=== PATIENT | male | born 1950 | race African-American/Black ===

== ENCOUNTER 2018-12-31 09:55 | Inpatient (IN) | payer OTHER ==
[2018-12-31] VITALS (47 sets, daily range): BP systolic 81–166; BP diastolic 38–123
[~2018-12-31] VITALS: Ht 177.8 cm; Wt 78.5 kg
[2018-12-31] MEDS ORDERED: OMEP10CA5 PO (10:05)
[2018-12-31] MEDS ORDERED: METO25TA6 PO (10:05)
[2018-12-31] MEDS ORDERED: PRO1 PO (10:05)
[2018-12-31] MEDS ORDERED: ALLO100T PO (10:05)
[2018-12-31] MEDS ORDERED: ISOS5TAB4 PO (10:05)
[2018-12-31] MEDS ORDERED: ASPI-1393 PO (10:05)
[2018-12-31] MEDS ORDERED: MORPHINE SULFATE 4 MG/ML CPJ (NOT FOR IM USE) IV STA (10:38)
[2018-12-31] MEDS ORDERED: SODIUM CHLORIDE 0.9% 1,000 ML IV ONE ×3 (10:38→12:30)
[2018-12-31 11:07] LABS: BASOPHILS % 0.4 % (0.0-2.0); EOSINOPHILS % 0.4 % (0.0-5.0); HEMATOCRIT. 22.6 % (42.0-52.0); HEMOGLOBIN. 7.4 g/dL (14.0-18.0); LYMPHOCYTES % 15.5 % (20.0-50.0); MEAN CORPUSCULAR HEMOGLOBIN 30.9 pg (28.0-32.0); MEAN CORPUSCULAR VOLUME 94.7 fL (80.0-94.0); MEAN PLATELET VOLUME 6.6 fl (7.4-10.4); MONOCYTES % 12.5 % (2.0-8.0); NEUTROPHILS % 71.2 % (40.0-76.0); PLATELET 896 x1000/uL (130-400); RED BLOOD CELL COUNT 2.39 mill/uL (4.7-6.1); RED CELL DISTRIBUTION WIDTH 18.5 % (11.6-14.6)
[2018-12-31 11:16] LABS: CHLORIDE 108 mEq/L (98-107)
[2018-12-31 11:18] LABS: INR 1.2; PROTHROMBIN TIME 12.7 sec (9.6-11.0)
[2018-12-31] MEDS ORDERED: VANCOMYCIN 1 G PREMIX 200 ML IV SCH (11:30)
[2018-12-31] MEDS ORDERED: PIPERACILLIN/TAZOBACTAM 3.375GM/50ML PREMIX IV ONE (11:30)
[2018-12-31] MEDS ORDERED: SUCCINYLCHOLINE CHLORIDE 200MG/10ML IV ONE ×2 (12:19→12:30)
[2018-12-31] MEDS ORDERED: ETOMIDATE 2MG/ML 10ML VIAL IV ONE ×2 (12:19→12:30)
[2018-12-31] MEDS ORDERED: ATROPINE SULFATE 1MG/10ML SYR ONE ×2 (12:19→13:58)
[2018-12-31] MEDS ORDERED: MIDAZOLAM HCL 50 MG in DEXTROSE 5% WATER 40 ML IV ONE ×2 (12:30→13:00)
[2018-12-31] MEDS ORDERED: MIDAZOLAM HCL 2 MG/2 ML VIAL IV ONE (12:45)
[2018-12-31 13:18] LABS: BG BASE EXCESS -9.6 mmol/L (-2.0-2.0); BG CARBOXYHEMOGLOBIN 0.5 % (0.5-1.5); BG DEOXYHEMOGLOBIN 0.2 % (0.0-5.0); BG FRACTION INSPIRED OXYGEN 100; BG HCO3 ACT 18.2 mmol/L (22.0-26.0); BG METHEMOGLOBIN 0.3 % (0.0-1.5); BG OXYGEN SATURATION 99.8 % (92.0-98.5); BG PCO2 51.2 mmHg (35.0-45.0); BG PH 7.168 (7.350-7.450); BG PO2 278.7 mmHg (75.0-100.0); BG SAMPLE SITE RIGHT RADIAL; BG TIDAL VOLUME(mL) 500 mL; BG TOTAL HEMOGLOBIN 6.2 g/dL (12.0-18.0); BG VENT MODE VENT - A/C; BG VENT RATE 14 set
[2018-12-31] MEDS ORDERED: NOREPINEPHRINE 4MG/250ML PMX 250 ML IV ONE ×2 (13:18→13:30)
[2018-12-31] MEDS ORDERED: LIDOCAINE HCL 1% 20ML VIAL (Pyxis) INJ ONE (13:22)
[2018-12-31] MEDS ORDERED: HEPARIN 5000 UNITS/ML VIAL IV ONE (13:30)
[2018-12-31 13:42] LABS: CLARITY URINE TURBID (CLEAR); COLOR URINE YELLOW (YELLOW); SPECIFIC GRAVITY URINE 1.021 (1.005-1.030)
[2018-12-31] MEDS ORDERED: ALTEPLASE 50MG/VIAL IV NR ×2 (13:45→14:15)
[2018-12-31] MEDS ORDERED: EPINEPHRINE 0.1MG/ML (1:10,000) 10ML SYR ONE ×3 (13:47→14:18)
[2018-12-31] MEDS ORDERED: AMIODARONE HCL 50MG/ML 3ML VIAL IV ONE (13:58)
[2018-12-31] MEDS ORDERED: LIDOCAINE HCL 2% 5ML SYRINGE IV ONE (13:58)
[2018-12-31] MEDS ORDERED: SODIUM BICARBONATE 8.4% MEQ/ML 50ML VIAL IV ONE (13:58)
[2018-12-31] MEDS ORDERED: DOPAMINE 400MG/250ML PREMIX 250 ML IV ONE ×2 (14:11→14:15)
[2018-12-31] MEDS ORDERED: ONDANSETRON HCL 4MG/2ML INJ IV PRN (14:15)
[2018-12-31] MEDS ORDERED: ALTEPLASE 100MG/VIAL IV ONE (14:15)
[2018-12-31] MEDS ORDERED: IPRATROPIUM/ALBUTEROL 0.5-3(2.5)MG/3ML NEB HHN PRN (14:15)
[2018-12-31] MEDS ORDERED: DEXT 5%/0.45% NACL 1000ML 1,000 ML IV SCH (14:15)
[2018-12-31] MEDS ORDERED: NOREPINEPHRINE 4MG/250ML PMX 250 ML IV PRN (14:15)
[2018-12-31] MEDS ORDERED: ACETAMINOPHEN 325MG TABLET PO PRN (14:15)
[2018-12-31] MEDS ORDERED: SODIUM BICARBONATE 8.4% 1 MEQ/ML 50ML SYR IV ONE (14:19)
[2018-12-31] MEDS ORDERED: PHENYLEPHRINE 40 MG in DEXT 5% WATER 246 ML IV PRN ×2 (15:00→15:15)
[2018-12-31] MEDS ORDERED: NOREPINEPHRINE 32 MG in DEXT 5% WATER 468 ML IV PRN (15:00)
[2018-12-31] MEDS ORDERED: DOPAMINE 400MG/250ML PREMIX 250 ML IV PRN (15:00)
[2018-12-31] MEDS ORDERED: PROPOFOL 10MG/ML 100ML 100 ML IV PRN (16:00)
[2018-12-31 16:12] LABS: TOTAL IRON BINDING CAPACITY 143 ug/dL (250-450)
[2018-12-31] MEDS: NOREPINEPHRINE 32 MG in DEXT 5% WATER 468 ML IV PRN (16:49)
[2018-12-31] MEDS: PHENYLEPHRINE 40 MG in DEXT 5% WATER 246 ML IV PRN (16:50)
[2018-12-31] MEDS ORDERED: VANCOMYCIN 500 MG PREMIX 100 ML IV SCH (17:00)
[2018-12-31 17:03] LABS: BASOPHILS % 0.3 % (0.0-2.0); EOSINOPHILS % 0.1 % (0.0-5.0); HEMATOCRIT. 21.5 % (42.0-52.0); LYMPHOCYTES % 11.9 % (20.0-50.0); MEAN CORPUSCULAR HEMOGLOBIN 31.1 pg (28.0-32.0); MEAN CORPUSCULAR VOLUME 100.1 fL (80.0-94.0); MEAN PLATELET VOLUME 6.7 fl (7.4-10.4); MONOCYTES % 2.1 % (2.0-8.0); NEUTROPHILS % 85.6 % (40.0-76.0); PLATELET 840 x1000/uL (130-400); RED BLOOD CELL COUNT 2.14 mill/uL (4.7-6.1); RED CELL DISTRIBUTION WIDTH 18.8 % (11.6-14.6)
[2018-12-31 17:14] LABS: CHLORIDE 109 mEq/L (98-107)
[2018-12-31 17:26] LABS: CREATINE KINASE MB FRACTION 37.1 ng/mL (0.5-3.6); HEMOGLOBIN. 6.7 g/dL (14.0-18.0)
[2018-12-31 17:37] LABS: PHOSPHORUS 8.2 mg/dL (2.5-4.9)
[2018-12-31 17:48] LABS: BG BASE EXCESS -11.3 mmol/L (-2.0-2.0); BG CARBOXYHEMOGLOBIN 0.2 % (0.5-1.5); BG DEOXYHEMOGLOBIN 0.5 % (0.0-5.0); BG FRACTION INSPIRED OXYGEN 100; BG HCO3 ACT 15.2 mmol/L (22.0-26.0); BG METHEMOGLOBIN 0.1 % (0.0-1.5); BG OXYGEN SATURATION 99.5 % (92.0-98.5); BG OXYHEMOGLOBIN 99.2 % (94.0-97.0); BG PCO2 37.2 mmHg (35.0-45.0); BG PO2 273.5 mmHg (75.0-100.0); BG SAMPLE SITE RIGHT BRACHIAL; BG TIDAL VOLUME(mL) 500 mL; BG TOTAL HEMOGLOBIN 6.8 g/dL (12.0-18.0); BG VENT MODE VENT - A/C; BG VENT RATE 20 set
[2018-12-31 17:49] LABS: CREATINE KINASE 6718 IU/L (39-308)
[2018-12-31] MEDS: BLOOD SUGAR DIAGNOSTIC STRIP TEST SCH ×2 (17:50→21:00)
[2018-12-31] MEDS: INSULIN LISPRO 100 UNITS/ML SUBCUT SCH ×2 (17:58→21:00)
[2018-12-31] MEDS ORDERED: SODIUM BICARBONATE 8.4% 1 MEQ/ML 50ML SYR IV NR (18:00)
[2018-12-31] MEDS: PIPERACILLIN/TAZ 3.375G PREMIX 50 ML IV SCH (18:36)
[2018-12-31] MEDS ORDERED: VASOPRESSIN 10 UNIT in SODIUM CHLORIDE 0.9% 99.5 ML IV PRN (20:00)
[2018-12-31] MEDS: IPRATROPIUM/ALBUTEROL 0.5-3(2.5)MG/3ML NEB HHN SCH (20:27)
[2018-12-31] MEDS: DEXTROSE 50% WATER 50ML SYRINGE IV PRN (21:05)
[2018-12-31] MEDS ORDERED: SODIUM BICARBONATE 150 MEQ in DEXTROSE 5% WATER 1,000 ML IV SCH (21:30)
[2019-01-01] VITALS (103 sets, daily range): BP systolic 40–151; BP diastolic 16–96
[2019-01-01] MEDS: PHENYLEPHRINE 40 MG in DEXT 5% WATER 246 ML IV PRN ×6 (00:32→17:33)
[2019-01-01] MEDS: IPRATROPIUM/ALBUTEROL 0.5-3(2.5)MG/3ML NEB HHN SCH ×2 (02:05→08:53)
[2019-01-01] MEDS: PIPERACILLIN/TAZ 3.375G PREMIX 50 ML IV SCH ×2 (02:12→05:44)
[2019-01-01 02:36] LABS: HEMATOCRIT 25.1 % (42.0-52.0); HEMOGLOBIN 8.5 g/dL (14.0-18.0)
[2019-01-01 05:29] LABS: BASOPHILS % 0.4 % (0.0-2.0); EOSINOPHILS % 1.1 % (0.0-5.0); HEMATOCRIT. 26.1 % (42.0-52.0); HEMOGLOBIN. 8.8 g/dL (14.0-18.0); LYMPHOCYTES % 20.9 % (20.0-50.0); MEAN CORPUSCULAR HEMOGLOBIN 31.2 pg (28.0-32.0); MEAN CORPUSCULAR VOLUME 93.1 fL (80.0-94.0); MEAN PLATELET VOLUME 7.1 fl (7.4-10.4); MONOCYTES % 8.6 % (2.0-8.0); PLATELET 627 x1000/uL (130-400); RED BLOOD CELL COUNT 2.81 mill/uL (4.7-6.1); RED CELL DISTRIBUTION WIDTH 17.9 % (11.6-14.6)
[2019-01-01 05:59] LABS: CREATINE KINASE MB FRACTION 24.3 ng/mL (0.5-3.6)
[2019-01-01 07:41] LABS: BG BASE EXCESS 5.2 mmol/L (-2.0-2.0); BG CARBOXYHEMOGLOBIN 0.5 % (0.5-1.5); BG DEOXYHEMOGLOBIN 1.6 % (0.0-5.0); BG HCO3 ACT 28.1 mmol/L (22.0-26.0); BG METHEMOGLOBIN 0.2 % (0.0-1.5); BG OXYGEN SATURATION 98.4 % (92.0-98.5); BG OXYHEMOGLOBIN 97.7 % (94.0-97.0); BG PCO2 34.2 mmHg (35.0-45.0); BG PH 7.533 (7.350-7.450); BG PO2 126.6 mmHg (75.0-100.0); BG SAMPLE SITE RIGHT RADIAL; BG TIDAL VOLUME(mL) 500 mL; BG TOTAL HEMOGLOBIN 7.8 g/dL (12.0-18.0); BG VENT MODE VENT - A/C; BG VENT RATE 24 set
[2019-01-01] MEDS: BLOOD SUGAR DIAGNOSTIC STRIP TEST SCH ×4 (08:17→21:33)
[2019-01-01] MEDS: INSULIN LISPRO 100 UNITS/ML SUBCUT SCH (08:17)
[2019-01-01] MEDS ORDERED: FAMOTIDINE 20MG/2ML VIAL IV SCH ×2 (09:00→17:00)
[2019-01-01] MEDS ORDERED: MAGNESIUM 2 G PREMIX 50 ML IV NR (10:30)
[2019-01-01] MEDS ORDERED: POTASSIUM CHLORIDE INJ 40 MEQ in DEXT 5% WATER 250 ML IV NR (11:00)
[2019-01-01] MEDS: PIPERACILLIN/TAZ 2.25G PREMIX 50 ML IV SCH ×2 (11:24→18:09)
[2019-01-01] MEDS: DEXT 5%/0.9% NACL 1,000 ML IV SCH ×2 (11:26→18:08)
[2019-01-01] MEDS: PANTOPRAZOLE SODIUM 40 MG/VIAL IV SCH ×2 (12:14→21:36)
[2019-01-01] MEDS: NOREPINEPHRINE 32 MG in DEXT 5% WATER 468 ML IV PRN (12:15)
[2019-01-01] MEDS: IPRATROPIUM BROMIDE (0.02%) 0.5MG/2.5ML NEB HHN SCH ×3 (12:34→19:59)
[2019-01-01 13:16] LABS: HEMATOCRIT 20.9 % (42.0-52.0)
[2019-01-01 13:52] LABS: VITAMIN B12 SERUM 1203 pg/mL (211-911)
[2019-01-01 14:39] LABS: HEPATITIS B SURFACE ANTIGEN NEGATIVE
[2019-01-01 15:09] LABS: HEPATITIS A AB IGM NEGATIVE (NEGATIVE)
[2019-01-01 16:26] LABS: METHADONE URINE SCREEN NEGATIVE (NEGATIVE); OPIATES URINE SCREEN PRESUMTIVE POSITIVE (NEGATIVE)
[2019-01-01 16:27] LABS: *AMPHETAMINES SCREEN URINE NEGATIVE (NEGATIVE); *BARBITURATES SCREEN URINE NEGATIVE (NEGATIVE); *BENZODIAZEPINES SCREEN URINE PRESUMTIVE POSITIVE (NEGATIVE); *COCAINE SCREEN URINE NEGATIVE (NEGATIVE); CANNABINOID URINE SCREEN NEGATIVE (NEGATIVE); PHENCYCLIDINE URINE SCREEN NEGATIVE (NEGATIVE)
[2019-01-01] MEDS ORDERED: VANCOMYCIN 1250MG in DEXTROSE 5% WATER 250ML IV SCH (17:00)
[2019-01-01] MEDS ORDERED: PHENYLEPHRINE 80 MG in DEXT 5% WATER 492 ML IV PRN (19:55)
[2019-01-01] MEDS ORDERED: VANCOMYCIN 500 MG PREMIX 100 ML IV SCH (21:00)
[2019-01-01] MEDS: PHENYLEPHRINE 80 MG in DEXT 5% WATER 492 ML IV PRN (21:32)
[2019-01-02] VITALS (92 sets, daily range): BP systolic 82–156; BP diastolic 37–85
[2019-01-02] MEDS: IPRATROPIUM BROMIDE (0.02%) 0.5MG/2.5ML NEB HHN SCH ×6 (00:12→20:22)
[2019-01-02] MEDS: PIPERACILLIN/TAZ 2.25G PREMIX 50 ML IV SCH ×4 (01:11→18:09)
[2019-01-02] MEDS: DEXT 5%/0.9% NACL 1,000 ML IV SCH ×2 (01:11→01:15)
[2019-01-02] MEDS: PHENYLEPHRINE 80 MG in DEXT 5% WATER 492 ML IV PRN ×2 (05:56→12:45)
[2019-01-02 06:09] LABS: BASOPHILS % 0.3 % (0.0-2.0); EOSINOPHILS % 1.3 % (0.0-5.0); HEMATOCRIT. 32.6 % (42.0-52.0); HEMOGLOBIN. 11.1 g/dL (14.0-18.0); LYMPHOCYTES % 9.2 % (20.0-50.0); MEAN CORPUSCULAR HEMOGLOBIN 31.5 pg (28.0-32.0); MEAN CORPUSCULAR VOLUME 92.9 fL (80.0-94.0); MEAN PLATELET VOLUME 7.1 fl (7.4-10.4); MONOCYTES % 6.5 % (2.0-8.0); NEUTROPHILS % 82.7 % (40.0-76.0); PLATELET 394 x1000/uL (130-400); RED CELL DISTRIBUTION WIDTH 16.2 % (11.6-14.6)
[2019-01-02 07:17] LABS: BG BASE EXCESS 0.3 mmol/L (-2.0-2.0); BG CARBOXYHEMOGLOBIN 0.7 % (0.5-1.5); BG HCO3 ACT 23.9 mmol/L (22.0-26.0); BG METHEMOGLOBIN 0.2 % (0.0-1.5); BG OXYGEN SATURATION 93.9 % (92.0-98.5); BG OXYHEMOGLOBIN 93.1 % (94.0-97.0); BG PCO2 35.4 mmHg (35.0-45.0); BG PH 7.448 (7.350-7.450); BG PO2 68.9 mmHg (75.0-100.0); BG SAMPLE SITE RIGHT BRACHIAL; BG TIDAL VOLUME(mL) 500 mL; BG TOTAL HEMOGLOBIN 11.8 g/dL (12.0-18.0); BG VENT MODE VENT - A/C; BG VENT RATE 20 set
[2019-01-02] MEDS: PANTOPRAZOLE SODIUM 40 MG/VIAL IV SCH ×2 (09:30→21:25)
[2019-01-02] MEDS: BLOOD SUGAR DIAGNOSTIC STRIP TEST SCH ×2 (12:00→18:00)
[2019-01-02 12:46] LABS: HEMATOCRIT 30.7 % (42.0-52.0); HEMOGLOBIN 10.5 g/dL (14.0-18.0)
[2019-01-02] MEDS ORDERED: FUROSEMIDE 40MG/4ML VIAL IVP SCH (14:00)
[2019-01-02] MEDS: DEXTROSE 50% WATER 50ML SYRINGE IV PRN (17:46)
[2019-01-02 18:50] LABS: HEMATOCRIT 28.6 % (42.0-52.0); HEMOGLOBIN 9.9 g/dL (14.0-18.0)
[2019-01-03] VITALS (100 sets, daily range): BP systolic 69–125; BP diastolic 41–93
[2019-01-03] MEDS: BLOOD SUGAR DIAGNOSTIC STRIP TEST SCH ×4 (00:17→17:40)
[2019-01-03] MEDS: IPRATROPIUM BROMIDE (0.02%) 0.5MG/2.5ML NEB HHN SCH ×4 (00:29→11:50)
[2019-01-03] MEDS: DEXT 5%/0.9% NACL 1,000 ML IV SCH ×2 (00:29→21:45)
[2019-01-03] MEDS: PIPERACILLIN/TAZ 2.25G PREMIX 50 ML IV SCH ×4 (00:30→21:45)
[2019-01-03] MEDS: PHENYLEPHRINE 80 MG in DEXT 5% WATER 492 ML IV PRN (00:30)
[2019-01-03 00:45] LABS: HEMATOCRIT 30.8 % (42.0-52.0); HEMOGLOBIN 10.8 g/dL (14.0-18.0)
[2019-01-03] MEDS: PANTOPRAZOLE SODIUM 40 MG/VIAL IV SCH ×2 (08:42→21:46)
[2019-01-03 08:48] LABS: BG BASE EXCESS 0.4 mmol/L (-2.0-2.0); BG CARBOXYHEMOGLOBIN 0.1 % (0.5-1.5); BG DEOXYHEMOGLOBIN 2.8 % (0.0-5.0); BG FRACTION INSPIRED OXYGEN 40; BG HCO3 ACT 24.5 mmol/L (22.0-26.0); BG OXYGEN SATURATION 97.2 % (92.0-98.5); BG OXYHEMOGLOBIN 97.1 % (94.0-97.0); BG PCO2 37.6 mmHg (35.0-45.0); BG PH 7.432 (7.350-7.450); BG SAMPLE SITE RIGHT RADIAL; BG TIDAL VOLUME(mL) 500 mL; BG TOTAL HEMOGLOBIN 10.6 g/dL (12.0-18.0); BG VENT MODE VENT - A/C; BG VENT RATE 20 set
[2019-01-03 09:00] LABS: BASOPHILS % 0.5 % (0.0-2.0); EOSINOPHILS % 2.9 % (0.0-5.0); HEMATOCRIT. 39.4 % (42.0-52.0); HEMOGLOBIN. 13.3 g/dL (14.0-18.0); LYMPHOCYTES % 12.5 % (20.0-50.0); MEAN CORPUSCULAR HEMOGLOBIN 31.4 pg (28.0-32.0); MEAN CORPUSCULAR VOLUME 93.4 fL (80.0-94.0); MEAN PLATELET VOLUME 7.7 fl (7.4-10.4); MONOCYTES % 5.5 % (2.0-8.0); NEUTROPHILS % 78.6 % (40.0-76.0); PLATELET 197 x1000/uL (130-400); RED BLOOD CELL COUNT 4.22 mill/uL (4.7-6.1); RED CELL DISTRIBUTION WIDTH 16.6 % (11.6-14.6)
[2019-01-03] MEDS ORDERED: FUROSEMIDE 40MG/4ML VIAL IVP NR (14:15)
[2019-01-03] MEDS: IPRATROPIUM/ALBUTEROL 0.5-3(2.5)MG/3ML NEB HHN SCH ×2 (15:33→20:32)
[2019-01-03] MEDS: ACETYLCYSTEINE 100MG/ML 10% VIAL 4ML INH SCH (15:34)
[2019-01-03] MEDS ORDERED: VANCOMYCIN 500 MG PREMIX 100 ML IV NR (18:00)
[2019-01-03 18:55] LABS: LDL CHOLESTEROL 15 mg/dL (5-100)
[2019-01-03 18:58] LABS: HDL CHOLESTEROL 8 mg/dL (40-59)
[2019-01-03] MEDS: NEOMY SULF/BACITRAC ZN/POLY OINT 28GM TOP SCH (21:45)
[2019-01-04] VITALS (99 sets, daily range): BP systolic 87–151; BP diastolic 50–98
[2019-01-04] MEDS: ACETYLCYSTEINE 100MG/ML 10% VIAL 4ML INH SCH ×3 (00:04→15:35)
[2019-01-04] MEDS: IPRATROPIUM/ALBUTEROL 0.5-3(2.5)MG/3ML NEB HHN SCH ×6 (00:04→20:29)
[2019-01-04] MEDS: BLOOD SUGAR DIAGNOSTIC STRIP TEST SCH ×4 (00:35→17:37)
[2019-01-04 05:39] LABS: BASOPHILS % 0.5 % (0.0-2.0); EOSINOPHILS % 2.7 % (0.0-5.0); HEMATOCRIT. 31.1 % (42.0-52.0); HEMOGLOBIN. 10.4 g/dL (14.0-18.0); LYMPHOCYTES % 15.5 % (20.0-50.0); MEAN CORPUSCULAR HEMOGLOBIN 30.9 pg (28.0-32.0); MEAN CORPUSCULAR VOLUME 92.1 fL (80.0-94.0); MEAN PLATELET VOLUME 7.9 fl (7.4-10.4); MONOCYTES % 6.9 % (2.0-8.0); NEUTROPHILS % 74.4 % (40.0-76.0); PLATELET 218 x1000/uL (130-400); RED BLOOD CELL COUNT 3.38 mill/uL (4.7-6.1); RED CELL DISTRIBUTION WIDTH 16.4 % (11.6-14.6)
[2019-01-04] MEDS: PIPERACILLIN/TAZ 2.25G PREMIX 50 ML IV SCH ×3 (06:04→21:08)
[2019-01-04 07:36] LABS: BG BASE EXCESS -0.7 mmol/L (-2.0-2.0); BG CARBOXYHEMOGLOBIN 0.1 % (0.5-1.5); BG DEOXYHEMOGLOBIN 1.6 % (0.0-5.0); BG HCO3 ACT 23.6 mmol/L (22.0-26.0); BG METHEMOGLOBIN 0.2 % (0.0-1.5); BG OXYGEN SATURATION 98.4 % (92.0-98.5); BG OXYHEMOGLOBIN 98.1 % (94.0-97.0); BG PCO2 37.5 mmHg (35.0-45.0); BG PH 7.416 (7.350-7.450); BG PO2 123.4 mmHg (75.0-100.0); BG SAMPLE SITE RIGHT RADIAL; BG TIDAL VOLUME(mL) 500 mL; BG TOTAL HEMOGLOBIN 11.6 g/dL (12.0-18.0); BG VENT MODE VENT - A/C; BG VENT RATE 20 set
[2019-01-04] MEDS: ASCORBIC ACID 500 MG TABLET PO SCH (08:32)
[2019-01-04] MEDS: PANTOPRAZOLE SODIUM 40 MG/VIAL IV SCH ×2 (08:32→21:08)
[2019-01-04] MEDS: ZINC SULFATE 220 MG ( 50 ) CAPSULE PO SCH (08:32)
[2019-01-04] MEDS: NEOMY SULF/BACITRAC ZN/POLY OINT 28GM TOP SCH ×2 (08:33→21:09)
[2019-01-04] MEDS: PHENYLEPHRINE 80 MG in DEXT 5% WATER 492 ML IV PRN ×2 (08:36→17:39)
[2019-01-04 09:22] LABS: LDL CHOLESTEROL 17 mg/dL (5-100)
[2019-01-04 09:23] LABS: HDL CHOLESTEROL 6 mg/dL (40-59)
[2019-01-04] MEDS: CLOPIDOGREL 75MG TABLET PO SCH (10:40)
[2019-01-04 11:22] LABS: CREATINE KINASE 1466 IU/L (39-308)
[2019-01-04] MEDS: DEXT 5%/0.9% NACL 1,000 ML IV SCH (17:37)
[2019-01-04] MEDS ORDERED: DEXTROSE 50% WATER 50ML SYRINGE IV PRN (20:00)
[2019-01-05] VITALS (100 sets, daily range): BP systolic 68–180; BP diastolic 35–119
[2019-01-05] MEDS: IPRATROPIUM/ALBUTEROL 0.5-3(2.5)MG/3ML NEB HHN SCH ×7 (00:13→23:38)
[2019-01-05] MEDS: ACETYLCYSTEINE 100MG/ML 10% VIAL 4ML INH SCH ×4 (00:14→23:38)
[2019-01-05] MEDS: BLOOD SUGAR DIAGNOSTIC STRIP TEST SCH ×2 (00:19→06:12)
[2019-01-05] MEDS: PHENYLEPHRINE 80 MG in DEXT 5% WATER 492 ML IV PRN ×3 (03:48→21:28)
[2019-01-05] MEDS: INSULIN LISPRO 100 UNITS/ML SUBCUT SCH ×2 (06:00)
[2019-01-05] MEDS: PIPERACILLIN/TAZ 2.25G PREMIX 50 ML IV SCH ×3 (06:12→21:26)
[2019-01-05 06:14] LABS: BASOPHILS % 0.4 % (0.0-2.0); EOSINOPHILS % 2.3 % (0.0-5.0); HEMATOCRIT. 32.2 % (42.0-52.0); LYMPHOCYTES % 19.2 % (20.0-50.0); MEAN CORPUSCULAR HEMOGLOBIN 31.2 pg (28.0-32.0); MEAN CORPUSCULAR VOLUME 91.5 fL (80.0-94.0); MEAN PLATELET VOLUME 8.1 fl (7.4-10.4); NEUTROPHILS % 68.1 % (40.0-76.0); PLATELET 248 x1000/uL (130-400); RED BLOOD CELL COUNT 3.52 mill/uL (4.7-6.1); RED CELL DISTRIBUTION WIDTH 16.7 % (11.6-14.6)
[2019-01-05 09:01] LABS: BG BASE EXCESS 0.5 mmol/L (-2.0-2.0); BG CARBOXYHEMOGLOBIN 0.2 % (0.5-1.5); BG FRACTION INSPIRED OXYGEN 35; BG HCO3 ACT 24.8 mmol/L (22.0-26.0); BG METHEMOGLOBIN 0.1 % (0.0-1.5); BG OXYHEMOGLOBIN 97.7 % (94.0-97.0); BG PCO2 38.9 mmHg (35.0-45.0); BG PH 7.423 (7.350-7.450); BG PO2 107.7 mmHg (75.0-100.0); BG SAMPLE SITE RIGHT RADIAL; BG TIDAL VOLUME(mL) 500 mL; BG TOTAL HEMOGLOBIN 11.8 g/dL (12.0-18.0); BG VENT MODE VENT - A/C; BG VENT RATE 16 set
[2019-01-05] MEDS: PANTOPRAZOLE SODIUM 40 MG/VIAL IV SCH ×2 (09:51→21:26)
[2019-01-05] MEDS: ASCORBIC ACID 500 MG TABLET PO SCH (09:51)
[2019-01-05] MEDS: NEOMY SULF/BACITRAC ZN/POLY OINT 28GM TOP SCH ×2 (09:51→21:27)
[2019-01-05] MEDS: FUROSEMIDE 40MG/4ML VIAL IVP SCH (09:51)
[2019-01-05] MEDS: ZINC SULFATE 220 MG ( 50 ) CAPSULE PO SCH (09:51)
[2019-01-05] MEDS: CLOPIDOGREL 75MG TABLET PO SCH (09:51)
[2019-01-06] VITALS (90 sets, daily range): BP systolic 100–184; BP diastolic 54–109
[2019-01-06] MEDS: IPRATROPIUM/ALBUTEROL 0.5-3(2.5)MG/3ML NEB HHN SCH ×6 (03:59→23:59)
[2019-01-06 05:48] LABS: BASOPHILS % 0.5 % (0.0-2.0); EOSINOPHILS % 3.2 % (0.0-5.0); HEMATOCRIT. 33.8 % (42.0-52.0); HEMOGLOBIN. 11.3 g/dL (14.0-18.0); LYMPHOCYTES % 28.3 % (20.0-50.0); MEAN CORPUSCULAR HEMOGLOBIN 30.6 pg (28.0-32.0); MEAN CORPUSCULAR VOLUME 91.8 fL (80.0-94.0); MEAN PLATELET VOLUME 8.6 fl (7.4-10.4); MONOCYTES % 11.2 % (2.0-8.0); NEUTROPHILS % 56.8 % (40.0-76.0); PLATELET 268 x1000/uL (130-400); RED BLOOD CELL COUNT 3.68 mill/uL (4.7-6.1); RED CELL DISTRIBUTION WIDTH 16.6 % (11.6-14.6)
[2019-01-06] MEDS: PIPERACILLIN/TAZ 2.25G PREMIX 50 ML IV SCH ×3 (06:11→21:14)
[2019-01-06 06:27] LABS: PHOSPHORUS 4.7 mg/dL (2.5-4.9)
[2019-01-06] MEDS: ACETYLCYSTEINE 100MG/ML 10% VIAL 4ML INH SCH ×3 (08:14→23:59)
[2019-01-06] MEDS: ASCORBIC ACID 500 MG TABLET PO SCH (09:02)
[2019-01-06] MEDS: PANTOPRAZOLE SODIUM 40 MG/VIAL IV SCH ×2 (09:02→21:14)
[2019-01-06] MEDS: ZINC SULFATE 220 MG ( 50 ) CAPSULE PO SCH (09:02)
[2019-01-06] MEDS: CLOPIDOGREL 75MG TABLET PO SCH (09:02)
[2019-01-06] MEDS: FUROSEMIDE 40MG/4ML VIAL IVP SCH (09:03)
[2019-01-06] MEDS: PHENYLEPHRINE 80 MG in DEXT 5% WATER 492 ML IV PRN ×2 (09:05→19:45)
[2019-01-06] MEDS: NEOMY SULF/BACITRAC ZN/POLY OINT 28GM TOP SCH ×2 (09:26→21:23)
[2019-01-06] MEDS ORDERED: POTASSIUM CHLORIDE 20MEQ/PACKET PO NR (10:00)
[2019-01-06] MEDS ORDERED: ETOMIDATE 2MG/ML 10ML VIAL IV ONE (10:13)
[2019-01-06] MEDS ORDERED: SUCCINYLCHOLINE CHLORIDE 200MG/10ML IV ONE (10:13)
[2019-01-06 11:17] LABS: BG BASE EXCESS 0.4 mmol/L (-2.0-2.0); BG CARBOXYHEMOGLOBIN 0.6 % (0.5-1.5); BG DEOXYHEMOGLOBIN 2.4 % (0.0-5.0); BG FRACTION INSPIRED OXYGEN 35; BG HCO3 ACT 24.1 mmol/L (22.0-26.0); BG METHEMOGLOBIN 0.2 % (0.0-1.5); BG OXYGEN SATURATION 97.6 % (92.0-98.5); BG OXYHEMOGLOBIN 96.8 % (94.0-97.0); BG PH 7.444 (7.350-7.450); BG PO2 99.4 mmHg (75.0-100.0); BG PRESSURE SUPPORT 8; BG SAMPLE SITE RIGHT RADIAL; BG TOTAL HEMOGLOBIN 12.6 g/dL (12.0-18.0); BG VENT MODE VENT - CPAP
[2019-01-06] MEDS: MIDODRINE HCL 5MG TABLET PO SCH ×2 (12:45→17:00)
[2019-01-06] MEDS ORDERED: VANCOMYCIN 500 MG PREMIX 100 ML IV SCH (14:00)
[2019-01-06 17:31] LABS: BG BASE EXCESS -0.4 mmol/L (-2.0-2.0); BG CARBOXYHEMOGLOBIN 0.4 % (0.5-1.5); BG DEOXYHEMOGLOBIN 16.7 % (0.0-5.0); BG FRACTION INSPIRED OXYGEN 50; BG HCO3 ACT 25.4 mmol/L (22.0-26.0); BG METHEMOGLOBIN 0.3 % (0.0-1.5); BG OXYGEN SATURATION 83.2 % (92.0-98.5); BG OXYHEMOGLOBIN 82.6 % (94.0-97.0); BG PCO2 46.4 mmHg (35.0-45.0); BG PH 7.357 (7.350-7.450); BG PO2 50.4 mmHg (75.0-100.0); BG SAMPLE SITE RIGHT RADIAL; BG TOTAL HEMOGLOBIN 12.3 g/dL (12.0-18.0)
[2019-01-06 21:33] LABS: BG BASE EXCESS 1.7 mmol/L (-2.0-2.0); BG CARBOXYHEMOGLOBIN 0.7 % (0.5-1.5); BG DEOXYHEMOGLOBIN 14.3 % (0.0-5.0); BG FRACTION INSPIRED OXYGEN 35; BG METHEMOGLOBIN 0.1 % (0.0-1.5); BG OXYGEN SATURATION 85.6 % (92.0-98.5); BG OXYHEMOGLOBIN 84.9 % (94.0-97.0); BG PCO2 39.6 mmHg (35.0-45.0); BG PH 7.435 (7.350-7.450); BG PO2 48.5 mmHg (75.0-100.0); BG SAMPLE SITE RIGHT RADIAL; BG TIDAL VOLUME(mL) 500 mL; BG TOTAL HEMOGLOBIN 13.6 g/dL (12.0-18.0); BG VENT MODE VENT - A/C; BG VENT RATE 16 set
[2019-01-06] MEDS ORDERED: PROPOFOL 10MG/ML 100ML 100 ML IV PRN (22:00)
[2019-01-07] VITALS (100 sets, daily range): BP systolic 82–160; BP diastolic 46–117
[2019-01-07] MEDS: IPRATROPIUM/ALBUTEROL 0.5-3(2.5)MG/3ML NEB HHN SCH ×5 (04:31→20:23)
[2019-01-07] MEDS: PHENYLEPHRINE 80 MG in DEXT 5% WATER 492 ML IV PRN ×3 (05:07→21:21)
[2019-01-07] MEDS: PIPERACILLIN/TAZ 2.25G PREMIX 50 ML IV SCH ×3 (05:17→21:08)
[2019-01-07 05:48] LABS: EOSINOPHILS % 4.2 % (0.0-5.0); HEMATOCRIT. 33.2 % (42.0-52.0); HEMOGLOBIN. 11.1 g/dL (14.0-18.0); LYMPHOCYTES % 27.8 % (20.0-50.0); MEAN CORPUSCULAR HEMOGLOBIN 30.5 pg (28.0-32.0); MEAN CORPUSCULAR VOLUME 91.4 fL (80.0-94.0); MEAN PLATELET VOLUME 8.6 fl (7.4-10.4); MONOCYTES % 4.1 % (2.0-8.0); NEUTROPHILS % 62.9 % (40.0-76.0); PLATELET 310 x1000/uL (130-400); RED BLOOD CELL COUNT 3.63 mill/uL (4.7-6.1); RED CELL DISTRIBUTION WIDTH 16.3 % (11.6-14.6)
[2019-01-07 06:06] LABS: PHOSPHORUS 5.7 mg/dL (2.5-4.9)
[2019-01-07 07:32] LABS: CLARITY URINE CLEAR (CLEAR); COLOR URINE YELLOW (YELLOW); KETONES URINE NEGATIVE (NEGATIVE); LEUKOCYTE ESTERASE URINE 1+ (NEGATIVE); NITRITE URINE NEGATIVE (NEGATIVE); OCCULT BLOOD URINE 1+ (NEGATIVE); PROTEIN URINE 1+ (NEGATIVE); SPECIFIC GRAVITY URINE 1.011 (1.005-1.030); UROBILINOGEN URINE 0.2 E.U./dL (0.2-1.0)
[2019-01-07] MEDS ORDERED: NOREPINEPHRINE 8 MG in DEXT 5% WATER 242 ML IV PRN (08:00)
[2019-01-07] MEDS ORDERED: LIDOCAINE HCL 1% 20ML VIAL (Pyxis) INJ ONE (08:37)
[2019-01-07] MEDS: ACETYLCYSTEINE 100MG/ML 10% VIAL 4ML INH SCH ×2 (08:42→15:50)
[2019-01-07 08:50] LABS: BG CARBOXYHEMOGLOBIN 0.1 % (0.5-1.5); BG FRACTION INSPIRED OXYGEN 50; BG HCO3 ACT 25.2 mmol/L (22.0-26.0); BG OXYHEMOGLOBIN 94.9 % (94.0-97.0); BG PCO2 34.4 mmHg (35.0-45.0); BG PH 7.482 (7.350-7.450); BG PO2 71.1 mmHg (75.0-100.0); BG SAMPLE SITE RIGHT RADIAL; BG TIDAL VOLUME(mL) 500 mL; BG TOTAL HEMOGLOBIN 11.7 g/dL (12.0-18.0); BG VENT MODE VENT - A/C; BG VENT RATE 16 set
[2019-01-07 08:52] LABS: INR 1.5; PARTIAL THROMBOPLASTIN TIME 29.6 sec (23.4-31.0); PROTHROMBIN TIME 14.8 sec (9.6-11.0)
[2019-01-07] MEDS: CLOPIDOGREL 75MG TABLET PO SCH (09:00)
[2019-01-07] MEDS: NEOMY SULF/BACITRAC ZN/POLY OINT 28GM TOP SCH ×2 (09:00→21:08)
[2019-01-07] MEDS: ASCORBIC ACID 500 MG TABLET PO SCH (09:49)
[2019-01-07] MEDS: ZINC SULFATE 220 MG ( 50 ) CAPSULE PO SCH (09:49)
[2019-01-07] MEDS: PANTOPRAZOLE SODIUM 40 MG/VIAL IV SCH ×2 (09:49→21:08)
[2019-01-07] MEDS: MIDODRINE HCL 5MG TABLET PO SCH ×3 (11:19→17:12)
[2019-01-07 18:39] LABS: CREATININE URINE (RAW) 24.9 mg/dl
[2019-01-07] MEDS: NOREPINEPHRINE 32 MG in DEXT 5% WATER 468 ML IV PRN (19:03)
[2019-01-08] VITALS (113 sets, daily range): BP systolic 80–164; BP diastolic 30–108
[2019-01-08] MEDS: ACETYLCYSTEINE 100MG/ML 10% VIAL 4ML INH SCH ×2 (00:40→09:20)
[2019-01-08] MEDS: IPRATROPIUM/ALBUTEROL 0.5-3(2.5)MG/3ML NEB HHN SCH ×6 (00:40→20:48)
[2019-01-08 05:14] LABS: BASOPHILS % 0.8 % (0.0-2.0); EOSINOPHILS % 4.1 % (0.0-5.0); HEMATOCRIT. 31.6 % (42.0-52.0); HEMOGLOBIN. 10.6 g/dL (14.0-18.0); LYMPHOCYTES % 20.3 % (20.0-50.0); MEAN CORPUSCULAR HEMOGLOBIN 30.9 pg (28.0-32.0); MEAN CORPUSCULAR VOLUME 91.8 fL (80.0-94.0); MONOCYTES % 9.2 % (2.0-8.0); NEUTROPHILS % 65.6 % (40.0-76.0); RED BLOOD CELL COUNT 3.44 mill/uL (4.7-6.1); RED CELL DISTRIBUTION WIDTH 16.3 % (11.6-14.6)
[2019-01-08] MEDS: PHENYLEPHRINE 80 MG in DEXT 5% WATER 492 ML IV PRN ×2 (06:28→17:05)
[2019-01-08 07:42] LABS: BG BASE EXCESS 0.8 mmol/L (-2.0-2.0); BG CARBOXYHEMOGLOBIN 0.3 % (0.5-1.5); BG DEOXYHEMOGLOBIN 2.2 % (0.0-5.0); BG FRACTION INSPIRED OXYGEN 50; BG HCO3 ACT 24.7 mmol/L (22.0-26.0); BG OXYGEN SATURATION 97.8 % (92.0-98.5); BG OXYHEMOGLOBIN 97.5 % (94.0-97.0); BG PCO2 37.1 mmHg (35.0-45.0); BG PH 7.442 (7.350-7.450); BG PO2 104.7 mmHg (75.0-100.0); BG SAMPLE SITE RIGHT RADIAL; BG TIDAL VOLUME(mL) 500 mL; BG TOTAL HEMOGLOBIN 11.2 g/dL (12.0-18.0); BG VENT MODE VENT - A/C; BG VENT RATE 16 set
[2019-01-08] MEDS: NEOMY SULF/BACITRAC ZN/POLY OINT 28GM TOP SCH ×2 (08:56→20:48)
[2019-01-08] MEDS: ASCORBIC ACID 500 MG TABLET PO SCH (08:56)
[2019-01-08] MEDS: ZINC SULFATE 220 MG ( 50 ) CAPSULE PO SCH (08:56)
[2019-01-08] MEDS: MIDODRINE HCL 5MG TABLET PO SCH ×3 (08:56→17:06)
[2019-01-08] MEDS: CLOPIDOGREL 75MG TABLET PO SCH (08:56)
[2019-01-08] MEDS: PANTOPRAZOLE SODIUM 40 MG/VIAL IV SCH ×2 (09:00→20:48)
[2019-01-08] MEDS: LORAZEPAM 2MG/ML CPJ IV PRN (11:56)
[2019-01-08 12:20] LABS: PLATELET 302 x1000/uL (130-400)
[2019-01-08] MEDS ORDERED: PREDNISONE 20MG TABLET NG SCH (21:30)
[2019-01-09] VITALS (93 sets, daily range): BP systolic 85–169; BP diastolic 23–116
[2019-01-09] MEDS: IPRATROPIUM/ALBUTEROL 0.5-3(2.5)MG/3ML NEB HHN SCH ×6 (00:35→20:17)
[2019-01-09 05:04] LABS: HEMATOCRIT. 30.8 % (42.0-52.0); HEMOGLOBIN. 10.3 g/dL (14.0-18.0); MEAN CORPUSCULAR HEMOGLOBIN 30.9 pg (28.0-32.0); MEAN CORPUSCULAR VOLUME 92.6 fL (80.0-94.0); MEAN PLATELET VOLUME 8.3 fl (7.4-10.4); PLATELET 319 x1000/uL (130-400); RED BLOOD CELL COUNT 3.32 mill/uL (4.7-6.1); RED CELL DISTRIBUTION WIDTH 16.5 % (11.6-14.6)
[2019-01-09 07:02] LABS: PLATELET ESTIMATE NORMAL
[2019-01-09] MEDS: CLOPIDOGREL 75MG TABLET PO SCH (08:02)
[2019-01-09] MEDS: ZINC SULFATE 220 MG ( 50 ) CAPSULE PO SCH (08:02)
[2019-01-09] MEDS: PANTOPRAZOLE SODIUM 40 MG/VIAL IV SCH ×2 (08:02→20:49)
[2019-01-09] MEDS: ASCORBIC ACID 500 MG TABLET PO SCH (08:02)
[2019-01-09] MEDS: MIDODRINE HCL 5MG TABLET PO SCH ×3 (08:02→17:06)
[2019-01-09] MEDS: NEOMY SULF/BACITRAC ZN/POLY OINT 28GM TOP SCH ×2 (08:03→20:52)
[2019-01-09 08:47] LABS: BG BASE EXCESS -1.3 mmol/L (-2.0-2.0); BG DEOXYHEMOGLOBIN 2.8 % (0.0-5.0); BG FRACTION INSPIRED OXYGEN 50; BG HCO3 ACT 22.8 mmol/L (22.0-26.0); BG METHEMOGLOBIN 0.1 % (0.0-1.5); BG OXYGEN SATURATION 97.2 % (92.0-98.5); BG OXYHEMOGLOBIN 97.1 % (94.0-97.0); BG PCO2 35.8 mmHg (35.0-45.0); BG PH 7.422 (7.350-7.450); BG PO2 96.6 mmHg (75.0-100.0); BG SAMPLE SITE RIGHT RADIAL; BG TIDAL VOLUME(mL) 500 mL; BG VENT MODE VENT - A/C; BG VENT RATE 16 set
[2019-01-09] MEDS: LORAZEPAM 2MG/ML CPJ IV PRN (13:17)
[2019-01-09] MEDS ORDERED: MEROPENEM 1,000 MG in SODIUM CHLORIDE 0.9% 100 ML IV SCH (18:30)
[2019-01-09] MEDS: MEROPENEM 500MG in NORMAL SALINE 50ML IV SCH (20:29)
[2019-01-09] MEDS ORDERED: PREDNISONE 20MG TABLET NG NR (21:00)
[2019-01-10] VITALS (90 sets, daily range): BP systolic 111–169; BP diastolic 39–112
[2019-01-10] MEDS: IPRATROPIUM/ALBUTEROL 0.5-3(2.5)MG/3ML NEB HHN SCH ×6 (00:21→20:01)
[2019-01-10 05:43] LABS: BASOPHILS % 0.2 % (0.0-2.0); HEMATOCRIT. 27.1 % (42.0-52.0); LYMPHOCYTES % 8.1 % (20.0-50.0); MEAN CORPUSCULAR VOLUME 90.7 fL (80.0-94.0); MEAN PLATELET VOLUME 8.3 fl (7.4-10.4); MONOCYTES % 2.3 % (2.0-8.0); NEUTROPHILS % 89.4 % (40.0-76.0); PLATELET 326 x1000/uL (130-400); RED BLOOD CELL COUNT 2.99 mill/uL (4.7-6.1); RED CELL DISTRIBUTION WIDTH 16.3 % (11.6-14.6)
[2019-01-10] MEDS: NEOMY SULF/BACITRAC ZN/POLY OINT 28GM TOP SCH ×2 (09:00→20:55)
[2019-01-10 09:12] LABS: BG BASE EXCESS -0.3 mmol/L (-2.0-2.0); BG CARBOXYHEMOGLOBIN 0.3 % (0.5-1.5); BG DEOXYHEMOGLOBIN 1.4 % (0.0-5.0); BG FRACTION INSPIRED OXYGEN 50; BG HCO3 ACT 23.4 mmol/L (22.0-26.0); BG OXYGEN SATURATION 98.6 % (92.0-98.5); BG OXYHEMOGLOBIN 98.3 % (94.0-97.0); BG PCO2 34.5 mmHg (35.0-45.0); BG PO2 135.7 mmHg (75.0-100.0); BG SAMPLE SITE RIGHT RADIAL; BG TIDAL VOLUME(mL) 500 mL; BG TOTAL HEMOGLOBIN 9.2 g/dL (12.0-18.0); BG VENT MODE VENT - A/C; BG VENT RATE 16 set
[2019-01-10] MEDS: MEROPENEM 500MG in NORMAL SALINE 50ML IV SCH ×2 (10:19→20:55)
[2019-01-10] MEDS: ZINC SULFATE 220 MG ( 50 ) CAPSULE PO SCH (10:19)
[2019-01-10] MEDS: PANTOPRAZOLE SODIUM 40 MG/VIAL IV SCH (10:19)
[2019-01-10] MEDS: CLOPIDOGREL 75MG TABLET PO SCH (10:19)
[2019-01-10] MEDS: ASCORBIC ACID 500 MG TABLET PO SCH (10:20)
[2019-01-10] MEDS ORDERED: POTASSIUM CHLORIDE 20MEQ TABLET SR PO NR (11:15)
[2019-01-10] MEDS: PREDNISONE 20MG TABLET NG SCH (12:03)
[2019-01-11] VITALS (49 sets, daily range): BP systolic 122–167; BP diastolic 64–108
[2019-01-11] MEDS: IPRATROPIUM/ALBUTEROL 0.5-3(2.5)MG/3ML NEB HHN SCH ×7 (00:29→23:57)
[2019-01-11 05:14] LABS: BASOPHILS % 0.1 % (0.0-2.0); HEMATOCRIT. 24.2 % (42.0-52.0); HEMOGLOBIN. 8.3 g/dL (14.0-18.0); MEAN CORPUSCULAR VOLUME 90.8 fL (80.0-94.0); MEAN PLATELET VOLUME 8.4 fl (7.4-10.4); MONOCYTES % 7.3 % (2.0-8.0); NEUTROPHILS % 81.6 % (40.0-76.0); PLATELET 336 x1000/uL (130-400); RED BLOOD CELL COUNT 2.67 mill/uL (4.7-6.1); RED CELL DISTRIBUTION WIDTH 16.3 % (11.6-14.6)
[2019-01-11] MEDS: PREDNISONE 20MG TABLET NG SCH (09:52)
[2019-01-11] MEDS: ASCORBIC ACID 500 MG TABLET PO SCH (09:52)
[2019-01-11] MEDS: ZINC SULFATE 220 MG ( 50 ) CAPSULE PO SCH (09:52)
[2019-01-11] MEDS: FAMOTIDINE 20MG/2ML VIAL IV SCH (09:53)
[2019-01-11] MEDS: CLOPIDOGREL 75MG TABLET PO SCH (09:53)
[2019-01-11] MEDS: NEOMY SULF/BACITRAC ZN/POLY OINT 28GM TOP SCH ×2 (09:54→20:37)
[2019-01-11] MEDS: AMLODIPINE 2.5MG TABLET PO SCH ×2 (10:45→20:36)
[2019-01-11] MEDS: MEROPENEM 500MG in NORMAL SALINE 50ML IV SCH (20:36)
[2019-01-11] MEDS ORDERED: POTASSIUM CHLORIDE 20MEQ/PACKET NG SCH (21:45)
[2019-01-12] VITALS (49 sets, daily range): BP systolic 123–171; BP diastolic 57–97
[2019-01-12] MEDS: IPRATROPIUM/ALBUTEROL 0.5-3(2.5)MG/3ML NEB HHN SCH ×5 (03:55→20:28)
[2019-01-12 06:04] LABS: BASOPHILS % 0.2 % (0.0-2.0); HEMATOCRIT. 24.6 % (42.0-52.0); HEMOGLOBIN. 8.3 g/dL (14.0-18.0); LYMPHOCYTES % 15.2 % (20.0-50.0); MEAN CORPUSCULAR HEMOGLOBIN 30.6 pg (28.0-32.0); MEAN CORPUSCULAR VOLUME 90.4 fL (80.0-94.0); MEAN PLATELET VOLUME 8.2 fl (7.4-10.4); MONOCYTES % 9.1 % (2.0-8.0); NEUTROPHILS % 75.5 % (40.0-76.0); PLATELET 354 x1000/uL (130-400); RED BLOOD CELL COUNT 2.72 mill/uL (4.7-6.1)
[2019-01-12] MEDS: AMLODIPINE 2.5MG TABLET PO SCH ×3 (09:00→20:56)
[2019-01-12] MEDS ORDERED: POTASSIUM CHLORIDE 20MEQ/PACKET PO SCH (09:00)
[2019-01-12 09:14] LABS: BG BASE EXCESS 1.4 mmol/L (-2.0-2.0); BG CARBOXYHEMOGLOBIN 0.3 % (0.5-1.5); BG DEOXYHEMOGLOBIN 3.3 % (0.0-5.0); BG FRACTION INSPIRED OXYGEN 40; BG HCO3 ACT 24.4 mmol/L (22.0-26.0); BG METHEMOGLOBIN 0.1 % (0.0-1.5); BG OXYGEN SATURATION 96.7 % (92.0-98.5); BG OXYHEMOGLOBIN 96.3 % (94.0-97.0); BG PCO2 32.5 mmHg (35.0-45.0); BG PH 7.494 (7.350-7.450); BG PO2 91.2 mmHg (75.0-100.0); BG SAMPLE SITE RIGHT RADIAL; BG TIDAL VOLUME(mL) 500 mL; BG TOTAL HEMOGLOBIN 8.8 g/dL (12.0-18.0); BG VENT MODE VENT - CPAP; BG VENT RATE 16 set
[2019-01-12] MEDS: CLOPIDOGREL 75MG TABLET PO SCH (09:33)
[2019-01-12] MEDS: ASCORBIC ACID 500 MG TABLET PO SCH (09:33)
[2019-01-12] MEDS: PREDNISONE 20MG TABLET NG SCH (09:33)
[2019-01-12] MEDS: FAMOTIDINE 20MG/2ML VIAL IV SCH (09:34)
[2019-01-12] MEDS: ZINC SULFATE 220 MG ( 50 ) CAPSULE PO SCH (09:34)
[2019-01-12] MEDS: NEOMY SULF/BACITRAC ZN/POLY OINT 28GM TOP SCH ×2 (09:36→20:57)
[2019-01-12] MEDS: MEROPENEM 500MG in NORMAL SALINE 50ML IV SCH (20:56)
[2019-01-13] VITALS (42 sets, daily range): BP systolic 92–169; BP diastolic 44–91
[2019-01-13] MEDS: IPRATROPIUM/ALBUTEROL 0.5-3(2.5)MG/3ML NEB HHN SCH ×6 (00:28→20:59)
[2019-01-13 05:21] LABS: BASOPHILS % 0.2 % (0.0-2.0); EOSINOPHILS % 0.1 % (0.0-5.0); HEMATOCRIT. 25.5 % (42.0-52.0); HEMOGLOBIN. 8.3 g/dL (14.0-18.0); LYMPHOCYTES % 17.5 % (20.0-50.0); MEAN CORPUSCULAR VOLUME 91.6 fL (80.0-94.0); MEAN PLATELET VOLUME 8.2 fl (7.4-10.4); MONOCYTES % 9.2 % (2.0-8.0); PLATELET 391 x1000/uL (130-400); RED BLOOD CELL COUNT 2.78 mill/uL (4.7-6.1); RED CELL DISTRIBUTION WIDTH 16.4 % (11.6-14.6)
[2019-01-13 05:34] LABS: INR 1.2; PARTIAL THROMBOPLASTIN TIME 24.9 sec (23.4-31.0)
[2019-01-13] MEDS: ZINC SULFATE 220 MG ( 50 ) CAPSULE PO SCH ×2 (08:00→12:46)
[2019-01-13] MEDS: ASCORBIC ACID 500 MG TABLET PO SCH ×2 (08:00→12:46)
[2019-01-13] MEDS: FAMOTIDINE 20MG/2ML VIAL IV SCH ×2 (08:48→10:00)
[2019-01-13] MEDS: PREDNISONE 20MG TABLET NG SCH ×2 (08:48→12:50)
[2019-01-13] MEDS: AMLODIPINE 2.5MG TABLET PO SCH ×3 (08:48→20:29)
[2019-01-13] MEDS: NEOMY SULF/BACITRAC ZN/POLY OINT 28GM TOP SCH ×2 (09:06→21:41)
[2019-01-13] MEDS ORDERED: MORPHINE SULFATE 2 MG/ML CPJ (NOT FOR IM USE) IV PRN (10:30)
[2019-01-13] MEDS ORDERED: HYDRALAZINE 20MG/ML VIAL IV PRN (10:45)
[2019-01-13] MEDS: MEROPENEM 500MG in NORMAL SALINE 50ML IV SCH (20:31)
[2019-01-14] VITALS (54 sets, daily range): BP systolic 94–164; BP diastolic 44–92
[2019-01-14] MEDS: IPRATROPIUM/ALBUTEROL 0.5-3(2.5)MG/3ML NEB HHN SCH ×6 (00:34→20:33)
[2019-01-14 05:41] LABS: INR 1.2; PROTHROMBIN TIME 12.4 sec (9.6-11.0)
[2019-01-14 06:15] LABS: BASOPHILS % 0.6 % (0.0-2.0); EOSINOPHILS % 0.4 % (0.0-5.0); HEMATOCRIT. 26.8 % (42.0-52.0); HEMOGLOBIN. 8.7 g/dL (14.0-18.0); LYMPHOCYTES % 25.3 % (20.0-50.0); MEAN CORPUSCULAR HEMOGLOBIN 30.5 pg (28.0-32.0); MEAN CORPUSCULAR VOLUME 93.4 fL (80.0-94.0); MEAN PLATELET VOLUME 8.7 fl (7.4-10.4); NEUTROPHILS % 64.7 % (40.0-76.0); PLATELET 392 x1000/uL (130-400); RED BLOOD CELL COUNT 2.87 mill/uL (4.7-6.1); RED CELL DISTRIBUTION WIDTH 16.6 % (11.6-14.6)
[2019-01-14] MEDS ORDERED: DIPHENHYDRAMINE 50MG/ML VIAL ONE (08:33)
[2019-01-14] MEDS ORDERED: FENTANYL CITRATE/PF 50MCG/ML 2ML VIAL ONE (08:33)
[2019-01-14] MEDS ORDERED: MIDAZOLAM HCL 5 MG/5 ML VIAL ONE (08:33)
[2019-01-14 09:07] LABS: BG BASE EXCESS 2.2 mmol/L (-2.0-2.0); BG DEOXYHEMOGLOBIN 10.5 % (0.0-5.0); BG FRACTION INSPIRED OXYGEN 40; BG HCO3 ACT 25.2 mmol/L (22.0-26.0); BG METHEMOGLOBIN 0.1 % (0.0-1.5); BG OXYGEN SATURATION 89.5 % (92.0-98.5); BG OXYHEMOGLOBIN 89.4 % (94.0-97.0); BG PH 7.501 (7.350-7.450); BG PO2 55.3 mmHg (75.0-100.0); BG SAMPLE SITE RIGHT RADIAL; BG TIDAL VOLUME(mL) 500 mL; BG TOTAL HEMOGLOBIN 9.1 g/dL (12.0-18.0); BG VENT MODE VENT - A/C; BG VENT RATE 16 set
[2019-01-14] MEDS ORDERED: MIDAZOLAM HCL 5 MG/5 ML VIAL IV PRN (09:34)
[2019-01-14] MEDS ORDERED: FENTANYL CITRATE/PF 50MCG/ML 2ML VIAL IV PRN (09:43)
[2019-01-14] MEDS: AMLODIPINE 2.5MG TABLET PO SCH ×2 (10:00→20:52)
[2019-01-14] MEDS: NEOMY SULF/BACITRAC ZN/POLY OINT 28GM TOP SCH ×2 (10:00→20:52)
[2019-01-14] MEDS: PREDNISONE 20MG TABLET NG SCH (10:29)
[2019-01-14] MEDS: ASCORBIC ACID 500 MG TABLET PO SCH (10:29)
[2019-01-14] MEDS: ZINC SULFATE 220 MG ( 50 ) CAPSULE PO SCH (10:29)
[2019-01-14] MEDS: FAMOTIDINE 20MG/2ML VIAL IV SCH (12:38)
[2019-01-14] MEDS ORDERED: BACTERIOSTATIC SODIUM CHLORIDE 0.9% 30ML VIAL IJ ONE (13:26)
[2019-01-14] MEDS: MEROPENEM 500MG in NORMAL SALINE 50ML IV SCH (20:54)
== END 2019-01-14 22:52 | disposition short-term general hospital (02) | DRG 720 ==
LOC: ER 09:55 → CVICU 12:33 → EDBEDREQSVC 12:35 → EDBEDREQ 12:35 → ENRESERV 12:43
PROVIDERS: ADMIT Internal Medicine; ATTEND Internal Medicine
PROC: 0BH17EZ Insertion of Endotracheal Airway into Trachea, Via Natural or Artificial Opening (ICD-10-PCS; principal; 2018-12-31)
PROC: 5A1955Z Respiratory Ventilation, Greater than 96 Consecutive Hours (ICD-10-PCS; 2018-12-31)
PROC: 5A12012 Performance of Cardiac Output, Single, Manual (ICD-10-PCS; 2018-12-31)
PROC: 30233N1 Transfusion of Nonautologous Red Blood Cells into Peripheral Vein, Percutaneous Approach (ICD-10-PCS; 2018-12-31)
PROC: 3E03317 Introduction of Other Thrombolytic into Peripheral Vein, Percutaneous Approach (ICD-10-PCS; 2018-12-31)
PROC: 02HV33Z Insertion of Infusion Device into Superior Vena Cava, Percutaneous Approach (ICD-10-PCS; 2019-01-02)
PROC: B548ZZA Ultrasonography of Superior Vena Cava, Guidance (ICD-10-PCS; 2019-01-02)
PROC: 4A00X4Z Measurement of Central Nervous Electrical Activity, External Approach (ICD-10-PCS; 2019-01-05)
PROC: 5A1D70Z Performance of Urinary Filtration, Intermittent, Less than 6 Hours Per Day (ICD-10-PCS; 2019-01-07)
PROC: 02H633Z Insertion of Infusion Device into Right Atrium, Percutaneous Approach (ICD-10-PCS; 2019-01-07)
PROC: B244ZZZ Ultrasonography of Right Heart (ICD-10-PCS; 2019-01-07)
PROC: 5A1D70Z Performance of Urinary Filtration, Intermittent, Less than 6 Hours Per Day (ICD-10-PCS; 2019-01-11)
PROC: 0DH63UZ Insertion of Feeding Device into Stomach, Percutaneous Approach (ICD-10-PCS; 2019-01-14)
PROC: 0DB68ZX Excision of Stomach, Via Natural or Artificial Opening Endoscopic, Diagnostic (ICD-10-PCS; 2019-01-14)
DX: A41.9 Sepsis, unspecified organism (principal); I21.4 Non-ST elevation (NSTEMI) myocardial infarction; I46.9 Cardiac arrest, cause unspecified; I63.9 Cerebral infarction, unspecified; E43 Unspecified severe protein-calorie malnutrition; G93.40 Encephalopathy, unspecified; J96.21 Acute and chronic respiratory failure with hypoxia; J69.0 Pneumonitis due to inhalation of food and vomit; K29.71 Gastritis, unspecified, with bleeding; J96.22 Acute and chronic respiratory failure with hypercapnia; E83.39 Other disorders of phosphorus metabolism; I42.9 Cardiomyopathy, unspecified; N17.0 Acute kidney failure with tubular necrosis; R65.21 Severe sepsis with septic shock; J44.9 Chronic obstructive pulmonary disease, unspecified; E87.8 Other disorders of electrolyte and fluid balance, not elsewhere classified; E87.6 Hypokalemia; E87.2 Acidosis; E83.42 Hypomagnesemia; M19.90 Unspecified osteoarthritis, unspecified site; F41.9 Anxiety disorder, unspecified; I10 Essential (primary) hypertension; I49.01 Ventricular fibrillation; C34.90 Malignant neoplasm of unspecified part of unspecified bronchus or lung; D53.9 Nutritional anemia, unspecified; E11.649 Type 2 diabetes mellitus with hypoglycemia without coma; I35.0 Nonrheumatic aortic (valve) stenosis; K72.00 Acute and subacute hepatic failure without coma; M10.9 Gout, unspecified; M62.82 Rhabdomyolysis; W08.XXXA Fall from other furniture, initial encounter; R13.10 Dysphagia, unspecified; Z72.0 Tobacco use; I25.2 Old myocardial infarction; Z85.118 Personal history of other malignant neoplasm of bronchus and lung; Z86.73 Personal history of transient ischemic attack (TIA), and cerebral infarction without residual deficits; Z91.19 Patient's noncompliance with other medical treatment and regimen; Z79.84 Long term (current) use of oral hypoglycemic drugs
CPT/HCPCS: 31500; 36415; 36556; 36569; 36600; 70551; 71045; 71250; 73502; 74176; 76700; 76937; 78580; 80048; 80061; 80076; 80202; 80305; 82140; 82270; 82375; 82550; 82553; 82570; 82575; 82607; 82705; 82728; 82746; 82805; 82962; 83036; 83540; 83550; 83605; 83735; 83880; 84100; 84134; 84145; 84156; 84439; 84443; 84478; 84481; 84484; 85014; 85018; 85379; 86705; 86706; 86709; 86803; 86850; 86900; 86920; 87015; 87045; 87070; 87077; 87186; 87340; 87427; 87449; 87493; 88305; 88312; 88313; 89055; 93005; 93306; 93880; 93970; 94002; 94003; 94640; 94660; 96374; 99285; A6261; C1725; C1752; C9113; J0282; J0330; J0461; J1200; J1265; J1940; J2060; J2185; J2250; J2270; J2370; J2543; J2997; J3010; J3370; J3475; J3480; J3490; J7030; J7040; J7042; J7050; J7060; J7070; J7512; J7608; J7620; P9016; A4315